=== PATIENT | female | born 1965 | race Caucasian/White ===

== ENCOUNTER 2017-11-28 06:03 | Emergency (ER) | payer BC ==
[2017-11-28 06:16] VITALS: BP 181/102; PULSE 98; TEMP 97.8; BMI 30.9
[2017-11-28] MEDS ORDERED: KETOROLAC TROMETHAMINE 60 MG/2 ML VIAL IM ONE (06:37)
[2017-11-28] MEDS ORDERED: CYCLOBENZAPRINE HCL 10 MG TABLET (FP) PO ONE (06:38)
[2017-11-28] MEDS ORDERED: KETOROLAC TROMETHAMINE 60 MG/2 ML VIAL ONE (06:39)
[2017-11-28] MEDS ORDERED: CYCLOBENZAPRINE HCL 10 MG TABLET (FP) ONE (06:40)
--- NOTE | 2017-11-28 06:41 | PDOC ---
History of Present Illness - General Chief Complaint: Back Pain Stated Complaint: BACK PAIN Time Seen by Provider: 11/28/17 06:32 Past History - Travel Close contact w/someone who was outside of country & ill: No - Past Medical History Allergies/Adverse Reactions: Allergies Allergy/AdvReac Type Severity Reaction Status Date / Time Penicillins Allergy Verified 11/28/17 06:05 Home Medications: Ambulatory Orders Alprazolam [Xanax] 0.25 mg PO PRN PRN 11/28/17 Cyclobenzaprine HCl [Flexeril 10 mg] 10 mg PO BID #40 tablet MDD 2 11/28/17 Oxycodone HCl/Acetaminophen [Percocet 5-325 mg Tablet] 1 tab PO Q6H PRN Oxycodone HCl/Acetaminophen [Percocet 5/325 -] 1 tab PO Q6H #12 tablet MDD 4 COPD: No Other medical history: HEARING LOSS - Suicide/Smoking/Psychosocial Hx Smoking History: Never smoked Review of Systems - Review of Systems Able to Perform ROS?: Yes Is the patient limited Slovak proficient: No Constitutional: No: Symptoms Reported, See HPI, Chills, Diaphoresis, Fever, Loss of Appetite, Malaise, Night Sweats, Weakness, Weight Stable, Unintentional Wgt. Loss, Unexplained wgt Loss, Other HEENTM: No: Symptoms Reported, See HPI, Eye Pain, Blurred Vision, Tearing, Recent change in vision, Double Vision, Cataracts, Ear Pain, Ocular Prothesis, Ear Discharge, Nose Pain, Nose Congestion, Tinnitus, Nose Bleeding, Hearing Loss , Throat Pain, Throat Swelling, Mouth Pain, Dental Problems, Difficulty Swallowing, Mouth Swelling, Other Respiratory: Yes: Cough. No: Symptoms reported, See HPI, Orthopnea, Shortness of Breath, SOB with Exertion (cough is improving), SOB at Rest, Stridor, Wheezing, Productive cough, Hemoptysis, Other Cardiac (ROS): No: Symptoms Reported, See HPI, Chest Pain, Edema, Irregular Heart Rate, Lightheadedness, Palpitations, Syncope, Chest Tightness, Other ABD/GI: No: Symptoms Reported, See HPI, Abdominal Distended, Abd. Pain w/ defecation, Blood Streaked Bowels, Constipated, Diarrhea, Difficulty Swallowing , Nausea, Poor Appetite, Poor Fluid Intake, Rectal Bleeding, Vomiting, Indigestion, Abdominal cramping, Tarry Stools, Other : No: Symptoms Reported, See HPI, Burning, Dysuria, Discharge, Frequency, Flank Pain, Hematuria, Incontinence, Pain, Urgency, Testicular Mass, Testicular Swelling, Lesions, Testicular Pain, Other Musculoskeletal: Yes: Muscle Pain, Other (pt feels a bit of left low back pain radiating to the left buttock). No: Symptoms Reported, See HPI, Back Pain, Gout , Joint Pain, Joint Swelling, Muscle Weakness, Neck Pain, Joint Stiffness Integumentary: No: Symptoms Reported, See HPI, Bruising, Change in Color, Change in Hair/Nails, Dryness, Erythema, Flushing, Lesions, Lumps, Pallor, Pruritus, Rash, Sweating, Other Neurological: No: Symptoms reported, See HPI, Headache, Numbness, Paresthesia, Pre-Existing Deficit, Seizure, Tingling, Tremors, Weakness, Unsteady Gait, Ataxia, Dizziness, Other Psychiatric: Yes: Anxiety. No: Depression, Frequent Crying, Stressors, Sleep Pattern Change, Emotional Problems, Mood Swings, Change in Appetite, Other *Physical Exam - Vital Signs Last Vital Signs Temp Pulse Resp BP Pulse Ox 97.8 F 98 H 16 181/102 H 98 11/28/17 06:09 11/28/17 06:09 11/28/17 06:09 11/28/17 06:09 11/28/17 06:09 - Physical Exam General Appearance: Yes: Nourished, Appropriately Dressed. No: Apparent Distress HEENT: positive: EOMI, RODO, Normal ENT Inspection, Normal Voice, Pharynx Normal. negative: Symmetrical, TMs Normal, Pale Conjunctivae, Photophobia, Scleral Icterus (R), Scleral Icterus (L), Muffled/Hoarse voice, Pharyngeal Erythema, Tonsillar Exudate, Tonsillar Erythema, Nasal Congestion, Rhinorrhea, Sinus Tenderness, Orbits, Hearing Decreased, Hearing Grossly Normal, TM Bulging , TM Dull, TM Erythema, Lesions, [place], Excessive drooling, Thrush, Other Neck: positive: Trachea midline, Supple. negative: Tender, Normal Thyroid, Rigid, Carotid bruit, Decreased range of motion, Stridor, Lymphadenopathy (R), Lymphadenopathy (L), Rigidity, Tender lateral, Tender midline, Thyromegaly, Other Respiratory/Chest: positive: Lungs Clear, Normal Breath Sounds. negative: Chest Tender, Respiratory Distress, Accessory Muscle Use, Labored Respiration, Rapid RR, Decreased Breath Sounds, Paradoxal Breathing, Crackles, Rales, Rhonchi , Stridor, Wheezing, Hyperresonant, Dullness, Plerual Rub, Other Cardiovascular: positive: Regular Rhythm, Regular Rate, S1, S2. negative: Edema , JVD, Murmur, Bradycardia, Tachycardia, Diastolic Murmur, Systolic Murmur, Gallop/S3, Gallop/S4, Irregularly Irregular, Irregular, Other Gastrointestinal/Abdominal: positive: Normal Bowel Sounds, Flat, Soft. negative : Tender, Organomegaly, Pulsatile Mass, Increased Bowel Sounds, Decreased BS, Protuberent, Distended, Guarding, Rebound, Tenderness, Hernia, Mass, Hepatomegaly, Spleenomegaly, Other Musculoskeletal: positive: Normal Inspection. negative: CVA Tenderness, CVA Tenderness (R), CVA Tenderness (L), Decreased Range of Motion, Muscle Spasm, Vertebral Tenderness, Other Extremity: positive: Normal Capillary Refill, Normal Inspection, Normal Range of Motion. negative: Tender (pt has minimal radiation of pain from low back to left buttock with 75 degree raise of the left leg), Pelvis Stable, Coldness, Cyanosis, Delayed Capillary Refill, Pedal Edema, Swelling, Calf Tenderness, Erythema, Inflammation, Other Integumentary: positive: Normal Color, Dry, Warm. negative: Cyanotic, Erythema , Jaundice, Mottled, Pale (no shingles rash or other noted on pt's body.), Cold , Clammy, Diaphoresis, Moist, Hives, Petechiae, Rash, Swelling, Ecchymosis, Bruising, Other Neurologic: positive: respiratory care practitioner II-XII NML intact, Fully Oriented, Alert, Normal Mood/ Affect Medical Decision Making - Medical Decision Making 11/28/17 06:41 Patient Name: Ninoska Noel Date: 1965 Address: [address] [place] [id number] Sex: Female Rx Written Rx Dispensed Drug Quantity Days Supply Prescriber Name 11/23/2017 11/24/2017 oxycodone-acetaminophen 5-325 mg tablet 15 15 Manuel Ma MD Patient Name: Ninoska Serrano Date: 1965 Address: [address] [place] [id number] Sex: Female Rx Written Rx Dispensed Drug Quantity Days Supply Prescriber Name 11/15/2017 11/19/2017 alprazolam 0.25 mg tablet 60 30 Manuel Ma MD 09/23/2017 10/05/2017 alprazolam 0.25 mg tablet 60 30 Manuel Ma MD 06/28/2017 06/30/2017 alprazolam 0.25 mg tablet 60 30 Manuel Ma MD 05/04/2017 05/05/2017 hydrocodone-chlorphen er susp 120ml 12 Outon, Shaquille 05/02/2017 05/05/2017 alprazolam 0.25 mg tablet 60 30 Outon, Shaquille 03/03/2017 03/05/2017 alprazolam 0.25 mg tablet 60 30 Outon, Shaquille 11/28/17 06:49 Pt states that she recently got over a cold and that she was given a z bettina. With all the coughing, she developed back pain and a slight sciatica; as a result, she comes requesting pain meds. Her PMD gave her some percocet a few days back but it ran out. Pt is requesting more. I will treat her with toradol and flexeril here. Home with flexeril and percocet. Pt has a positive left straight leg raise however the right leg doesn't elicit any pain. Pt will be watched here for imrpovement. I lizeth sign her out to the day team; they can send her home when she is feeling better. *DC/Admit/Observation/Transfer Diagnosis at time of Disposition: Back pain, Sciatica - Discharge Dispostion Disposition: HOME Condition at time of disposition: Improved Decision to Admit order: No - Prescriptions Prescriptions: Cyclobenzaprine HCl [Flexeril 10 mg] 10 mg PO BID #40 tablet MDD 2 Oxycodone HCl/Acetaminophen [Percocet 5/325 -] 1 tab PO Q6H #12 tablet MDD 4 - Referrals Referrals: Manuel Ma MD [Primary Care Provider] - - Patient Instructions Printed Discharge Instructions: Shoe Insoles Do Not Appear to Prevent Chronic Low Back Pain, Activity May Be Better then Rest for Low Back Pain Recovery, Exercise May Reduce Risk of Low Back Pain - Post Discharge Activity
== END 2017-11-28 07:18 | disposition home or self-care (01) ==
LOC: FER 06:03
PROC: 3E0233Z Introduction of Anti-inflammatory into Muscle, Percutaneous Approach (ICD-10-PCS; principal; 2017-11-28)
DX: M54.9 Dorsalgia, unspecified (principal); M54.30 Sciatica, unspecified side
CPT/HCPCS: 99282-25

== ENCOUNTER 2017-12-22 02:34 | Emergency (ER) | payer BC ==
--- NOTE | 2017-12-22 03:22 | PDOC ---
History of Present Illness - General Chief Complaint: Back Pain Stated Complaint: LEFT SIDE LOWER BACK AND RECTAL PAIN Time Seen by Provider: 12/22/17 03:20 History Source: Patient - History of Present Illness Initial Comments: 12/22/17 04:24 52 year old female with left sided sciatica pain x 25 days currently under treatment with Dr. main. patient reports that she has been taking percocet for pain now with constipation and rectal discomfort. patient also c/o left leg numbness and pain which has been going on and off since sciatica symptoms started. patienthas equal sensation denies incontinence of bowel or urine. patient is scheduled for a lumbar spine MRI today. patient is on day 1 of medrol dose pack prescribed By Dr. Main Past History - Past Medical History Allergies/Adverse Reactions: Allergies Allergy/AdvReac Type Severity Reaction Status Date / Time cephalexin [From Keflex] Allergy Verified 12/22/17 02:53 Penicillins Allergy Verified 12/22/17 02:53 Home Medications: Ambulatory Orders Alprazolam [Xanax] 0.25 mg PO PRN PRN 11/28/17 Cyclobenzaprine HCl [Flexeril 10 mg] 10 mg PO BID #40 tablet MDD 2 11/28/17 Oxycodone HCl/Acetaminophen [Percocet 5-325 mg Tablet] 1 tab PO Q6H PRN Oxycodone HCl/Acetaminophen [Percocet 5/325 -] 1 tab PO Q6H #12 tablet MDD 4 Docusate Sodium [Colace] 100 mg PO BID #30 capsule 12/22/17 Hydrocortisone Acetate [Anusol Hc Suppository -] 25 mg RC DAILY #14 supp.rect Polyethylene Glycol 3350 [Miralax (For Daily Use) -] 17 gm PO DAILY #1 bottle COPD: No - Suicide/Smoking/Psychosocial Hx Smoking History: Never smoked Have you smoked in the past 12 months: No Information on smoking cessation initiated: No Hx Alcohol Use: No Drug/Substance Use Hx: No Review of Systems - Review of Systems Able to Perform ROS?: Yes Is the patient limited Luxembourgish proficient: No Musculoskeletal: Yes: Back Pain *Physical Exam - Vital Signs Last Vital Signs Temp Pulse Resp BP Pulse Ox 98.2 F 76 18 169/82 99 12/22/17 02:53 12/22/17 02:53 12/22/17 02:53 12/22/17 02:53 12/22/17 02:53 - Physical Exam General Appearance: Yes: Appropriately Dressed Gastrointestinal/Abdominal: positive: Normal Bowel Sounds, Soft. negative: Tender Rectal Exam: positive: normal exam, normal rectal tone, hemorrhoids (with anal fissure) Musculoskeletal: positive: Normal Inspection Extremity: positive: Normal Capillary Refill, Normal Inspection, Normal Range of Motion Neurologic: positive: Fully Oriented, Alert, Normal Mood/Affect, Motor Strength 5/5, Numbness (full rectal tone. no saddle anesthesia). negative: Sensory Deficit Progress Note - Progress Note Progress Note: A: sciatica pain P: pain control 2. hemorrhoid; anal fissure constipation P: anusol; miralax; colace *DC/Admit/Observation/Transfer Diagnosis at time of Disposition: Anal fissure Sciatica Qualifiers: Laterality: left Qualified Code(s): M54.32 - Sciatica, left side Constipation Qualifiers: Constipation type: unspecified constipation type Qualified Code(s): K59.00 - Constipation, unspecified - Discharge Dispostion Disposition: HOME Condition at time of disposition: Stable - Prescriptions Prescriptions: Docusate Sodium [Colace] 100 mg PO BID #30 capsule Hydrocortisone Acetate [Anusol Hc Suppository -] 25 mg RC DAILY #14 supp.rect Polyethylene Glycol 3350 [Miralax (For Daily Use) -] 17 gm PO DAILY #1 bottle - Referrals - Patient Instructions Printed Discharge Instructions: DI for Back Pain With Sciatica Additional Instructions: please follow up with Dr. Main and MRI today as scheduled. drink plenty of fluids start a high fiber diet return to the ER if symptoms worsen Additional Instructions: * Please call your personal physician to report your Emergency Department visit and to report your progress, if any. * If there is no improvement in symptoms in 2 days call your physician. * Return to the Emergency Department for any worsening symptoms. - Post Discharge Activity Forms/Work/School Notes: Back to Work
[2017-12-22] MEDS ORDERED: KETOROLAC TROMETHAMINE 30 MG/1 ML VIAL IM ONE (03:46)
[2017-12-22] MEDS ORDERED: PHENYLEPHRINE 0.25%/STARCH 1 EACH SUPP.RECT PR ONE (03:47)
[2017-12-22] MEDS ORDERED: KETOROLAC TROMETHAMINE 30 MG/1 ML VIAL ONE (04:04)
[2017-12-22] MEDS ORDERED: PHENYLEPHRINE 0.25%/STARCH 1 EACH SUPP.RECT RC ONE (04:04)
[2017-12-22 04:39] LABS: URINE APPEARANCE CLEAR; URINE BILIRUBIN NEGATIVE (<2.0 mg/dL); URINE COLOR STRAW; URINE GLUCOSE (UA) NEGATIVE (NEGATIVE); URINE KETONE NEGATIVE (NEGATIVE); URINE LEUK ESTERASE NEGATIVE (NEGATIVE); URINE NITRITE NEGATIVE (NEGATIVE); URINE PROTEIN NEGATIVE (NEGATIVE); URINE UROBILINOGEN NEGATIVE mg/dL (0.2-1.0)
--- NOTE | 2017-12-22 04:49 | PDOC ---
*Physical Exam - Vital Signs Last Vital Signs Temp Pulse Resp BP Pulse Ox 98.2 F 76 18 169/82 99 12/22/17 02:53 12/22/17 02:53 12/22/17 02:53 12/22/17 02:53 12/22/17 02:53 ED Treatment Course - Medications Given in the ED: ED Medications Discontinued Medications Generic Name Dose Route Start Last Admin Trade Name Annika PRN Reason Stop Dose Admin Ketorolac Tromethamine 30 mg 12/22/17 03:46 12/22/17 04:14 Toradol Injection - IM 12/22/17 03:47 30 mg ONCE ONE Administration Starch 1 each 12/22/17 03:47 12/22/17 04:14 Anusol Suppository - NV 12/22/17 03:48 1 each ONCE ONE Administration Medical Decision Making - Medical Decision Making 12/22/17 04:47 52F with almost a month of persistent sciatica px, no associated weakness or anesthsia. Pt is here today complaining of rectal px from hard stool 2/2 opioid tx. Being followed by Dr. Main, is scheduled for MRI today Agree with exam as documented in MLP note Analgesia re-eval likely dc and follow up with plan that's already in place 12/22/17 04:49 12/22/17 04:49 *DC/Admit/Observation/Transfer Diagnosis at time of Disposition: Anal fissure Sciatica Qualifiers: Laterality: left Qualified Code(s): M54.32 - Sciatica, left side Constipation Qualifiers: Constipation type: unspecified constipation type Qualified Code(s): K59.00 - Constipation, unspecified - Discharge Dispostion Disposition: HOME - Prescriptions Prescriptions: Docusate Sodium [Colace] 100 mg PO BID #30 capsule Hydrocortisone Acetate [Anusol Hc Suppository -] 25 mg RC DAILY #14 supp.rect Polyethylene Glycol 3350 [Miralax (For Daily Use) -] 17 gm PO DAILY #1 bottle - Referrals - Patient Instructions Printed Discharge Instructions: DI for Back Pain With Sciatica Additional Instructions: please follow up with Dr. Main and MRI today as scheduled. drink plenty of fluids start a high fiber diet return to the ER if symptoms worsen Additional Instructions: * Please call your personal physician to report your Emergency Department visit and to report your progress, if any. * If there is no improvement in symptoms in 2 days call your physician. * Return to the Emergency Department for any worsening symptoms. - Post Discharge Activity Forms/Work/School Notes: Back to Work
[2017-12-22 04:51] VITALS: BP 169/82; PULSE 76; TEMP 98.2; BMI 26.6
[2017-12-22 08:25] LABS: EPI CELLS RARE /HPF (FEW)
== END 2017-12-22 04:55 | disposition home or self-care (01) ==
LOC: JER 02:34
PROC: 3E0233Z Introduction of Anti-inflammatory into Muscle, Percutaneous Approach (ICD-10-PCS; principal; 2017-12-22)
DX: K60.2 Anal fissure, unspecified (principal); M54.2 Cervicalgia; K59.00 Constipation, unspecified
CPT/HCPCS: 81003; 81015; 99282-25